=== PATIENT | female | born 1975 | race Native Hawaiian/Other Pacific Islander ===

== ENCOUNTER 2017-09-28 15:11 | Outpatient (CLI) | payer BC | END 2017-09-28 21:34 | disposition home or self-care (01) | LOC: RAD 15:11 | DX: M25.531 Pain in right wrist (principal) ==

== ENCOUNTER 2022-03-06 07:41 | Outpatient (CLI) | payer OTHER ==
[~2022-03-06] VITALS: Ht 167.6 cm; Wt 100.2 kg
[2022-03-06 07:48] VITALS: BP 173/84; TEMP 98.7
[2022-03-06 10:05] VITALS: BP 164/86; TEMP 98.4
== END 2022-03-06 22:35 | disposition home or self-care (01) ==
LOC: INF 07:41
PROVIDERS: ATTEND Internal Medicine
DX: D64.9 Anemia, unspecified (principal)
CPT/HCPCS: 96365; J2916

== ENCOUNTER 2022-05-02 08:44 | Outpatient (CLI) | payer OTHER ==
[~2022-05-02] VITALS: Ht 167.6 cm; Wt 93.0 kg
[2022-05-02 09:05] VITALS: BP 141/80; TEMP 98.5
[2022-05-02 10:39] VITALS: BP 158/83; TEMP 98.7
== END 2022-05-02 20:31 | disposition home or self-care (01) ==
LOC: INF 08:44
PROVIDERS: ATTEND Internal Medicine
DX: E61.1 Iron deficiency (principal)
CPT/HCPCS: J2916